=== PATIENT | male | born 1985 | race Caucasian/White ===

== ENCOUNTER 2023-08-18 14:38 | Outpatient (CLI) | payer BC, SELFPAY ==
--- NOTE | ~2023-08-18 | MR_ITS ---
EXAMINATION: MR lumbar spine wo con DATE: 08/18/2023 15:17 INDICATION: Lumbar radiculopathy TECHNIQUE: Magnetic resonance imaging (MRI) of the lumbar spine was performed without intravenous con trast. Sequences included sagittal T2-weighted FSE, sagittal T2-weighted FS FSE, sagittal T1-weighted FSE, and axial T2-weighted FSE. COMPARISON: 08/27/2013 FINDINGS: 5 mm retrolisthesis L4 on L5. 2 mm retrolisthesis L5 on S1. Chronic mild anterior wedging at T12 and L1, minimal at L2. Progression of now moderate to severe disc height loss at L4-L5 with associated fi brovascular degenerative endplate changes. There is also progression of now moderate disc height loss at T12-L1 and L5-S1 and mild to moderate disc height loss at L3-L4. Unchanged mild disc height loss at L1-L2. There are annular fissures and at each of these levels. The conus medullaris terminates at L1-L2. There is normal signal in the caudal spinal cord. Paravertebral soft tissues are unremarkable. The following disc levels are specifically discussed: T12-L1: Mild disc bulge with small disc right paracentral disc extrusion extending a few millimeter c ephalad to the inferior endplate of T12. There is mild bilateral facet joint osteoarthritis. There is no neural foraminal stenosis. There is mild central canal stenosis. L1-L2: Disc is bulging. There is minimal bilateral facet joint osteoarthritis. There is mild neural f oraminal stenosis. There is no central canal stenosis. L2-L3: Very small bilateral foraminal zone disc protrusions. There is mild bilateral facet joint oste oarthritis. There is minimal bilateral neural foraminal stenosis. There is no central canal stenosis. L3-L4: Disc is bulging. There is mild bilateral facet joint osteoarthritis. There is mild right and m ild to moderate left neural foraminal stenosis. There is mild central canal stenosis. L4-L5: Disc is bulging with large right paracentral disc extrusion extending 1.3 cm medial collateral , 7 mm AP and 6 mm inferior to the endplate of L5. There is mild bilateral facet joint osteoarthritis . There is moderate right and mild to moderate left neural foraminal stenosis. There is moderate cent ral canal stenosis with severe stenosis of the right lateral recess. L5-S1: Disc is bulging with annular fissure and small left paracentral disc extrusion with disc mater ial extending 3 mm caudal to the level of the superior endplate of S1. There is moderate bilateral fa cet joint osteoarthritis. There is mild left and mild to moderate right neural foraminal stenosis. Th ere is mild central canal stenosis with mild narrowing of the left lateral recess. IMPRESSION: 1. Interval progression of now moderate to severe lower lumbar predominant spondylosis most notable f or a new increasing moderate sized disc extrusion at L4-5 resulting in moderate central canal stenosi s and severe stenosis of the right lateral recess. 2. No significant change in grade 1 retrolisthesis L4 on L5. Reviewed, dictated and finalized at location A. [employer] IMPRESSION: 1. Interval progression of now moderate to severe lower lumbar predominant spon dylosis most notable for a new increasing moderate sized disc extrusion at L4-5 resulting in moderate central canal stenosis and severe stenosis of the right lateral recess. 2. No significant change in grade 1 retrolisthesis L4 on L5.
== END 2023-08-18 14:39 ==
LOC: GOSHIMG 14:39
PROVIDERS: PCP Family Medicine; Visit Provider Family Medicine
DX: M43.06 Spondylolysis, lumbar region (principal); M48.061 Spinal stenosis, lumbar region without neurogenic claudication
CPT/HCPCS: 72148